=== PATIENT | female | born 1960 | race Caucasian/White ===

== ENCOUNTER → 2019-05-06 10:56 | Outpatient (CLI) | payer OTHER, SELFPAY ==
--- NOTE | 2019-05-06 11:10 | DI.CT.S_ITS ---
PROCEDURE: CT ABDOMEN PELVIS WO/W CON INDICATIONS: Painless, gross hematuria TECHNIQUE: Optional 5 mm thick noncontrast images acquired from the diaphragm to the symphysis pubis. After the administration of intravenous contrast, 5 mm thick images acquired from the diaphragm to the symphysis pubis after a 10-minute delay. 2 mm thick coronal and sagittal reformats were then performed of the kidneys and ureters. For radiation dose reduction, the following was used: automated exposure control, adjustment of mA and/or kV according to patient size. COMPARISON: [facility], MR, MR ABD PELVIS W&WO CON, 06/03/2016, 9:51. FINDINGS: Image quality: Excellent. Lung bases: Lung bases are clear. Heart size is normal. Urinary system: Both kidneys are normal in size, without hydronephrosis or nephrolithiasis on pre-contrast images. No perinephric fat stranding. There is normal bilateral renal enhancement. Renal calyces appear normal in morphology when filled with contrast. Opacified portions of both ureters demonstrate normal caliber. Bladder wall thickness is mildly thickened. No calcified bladder stones. Subcentimeter left renal cyst. Other solid organs: Liver is normal in size and enhancement. Gallbladder surgically absent. Biliary system is non dilated. Ill-defined low attenuation seen in the region of the head of pancreas, which is technically indeterminate however raises the possibility of ill-defined mass. Exact measurements are technically difficult however this measures proximal 4.6 x 2.9 cm on an axial image 62 series 3. Spleen is normal in size and enhancement. No adrenal nodules. Peritoneum and bowel: Bowel loops demonstrate normal wall thickness and caliber. No free fluid or air. Nodes and vessels: No retroperitoneal or mesenteric adenopathy by size criteria. Aorta and inferior vena cava are normal in size. Abdominal wall: No ventral hernias. Pelvis: No pathologic free pelvic fluid. No inguinal hernias or adenopathy. Enlarged heterogeneous uterus suggestive of fibroids. Bones: No suspicious bony lesions. No vertebral body compression fractures. IMPRESSION: No urolithiasis or evidence of urinary obstruction. Ill-defined soft tissue attenuation the region of the pancreas raising possibility of pancreatic neoplasm. However, the findings are technically nonspecific. Please correct clinically and with pancreatic enzymes to exclude acute inflammatory process. Recommend further evaluation with pancreatic protocol MRI with and without contrast. Or if sufficient clinical suspicion, endoscopic ultrasound could be considered Fibroid uterus. Dictated by: Chris Jean M.D. on 05/06/2019 at 13:26 Approved by: Chris Jean M.D. on 05/06/2019 at 16:36
== END ==
PROVIDERS: Visit Provider Physician Assistant
DX: R31.0 Gross hematuria (principal); D25.9 Leiomyoma of uterus, unspecified; Z90.49 Acquired absence of other specified parts of digestive tract
CPT/HCPCS: 74178

== ENCOUNTER → 2020-12-13 11:08 | Outpatient (CLI) | payer MEDICARE, SELFPAY ==
--- NOTE | 2020-12-13 11:12 | DI.US.S_ITS ---
PROCEDURE: US PELVIC COMPLETE INDICATIONS: POST MENOPAUSAL BLEEDING TECHNIQUE: Real-time scanning was performed of the pelvic organs, with image documentation. Additional endovaginal scanning was necessary due to incomplete visualization of the adnexal and endometrial structures by transabdominal scanning. COMPARISON: [facility], CT, CT ABDOMEN PELVIS WO/W CON, 05/06/2019, 11:27. [facility], US, US PELVIC COMPLETE, 12/06/2019, 11:22. FINDINGS: Uterus: Uterus is enlarged measuring at 10.2 x 7.5 x 6.7 cm. Large fibroid distorts the endometrium. Mid intramural fibroid measuring approximately 7.6 x 6.4 x 4.7 cm. Endometrial thickness is difficult to measure. Nabothian cysts. Ovaries: Not well seen. Other: No pathologic free abdominal or pelvic fluid. IMPRESSION: 1. Enlarged fibroid uterus. Large fibroid measures approximately 7.6 cm. 2. Endometrial cavity is not well seen. Endometrial thickness cannot be measured. -Recommended endometrial biopsy. -Consider MRI pelvis with IV contrast to further evaluate the uterus and endometrium in this postmenopausal patient with bleeding. 3. Ovaries are not well seen. Dictated by: Reji Rios M.D. on 12/13/2020 at 13:59 Approved by: Reji Rios M.D. on 12/13/2020 at 14:04
== END ==
PROVIDERS: Referring Provider Obstetrics & Gynecology; Visit Provider Obstetrics & Gynecology
DX: N95.0 Postmenopausal bleeding (principal); D25.1 Intramural leiomyoma of uterus
CPT/HCPCS: 76830; 76856

== ENCOUNTER → 2021-07-15 11:33 | Outpatient (CLI) | payer MEDICARE, SELFPAY ==
[2021-07-15 12:44] LABS: COVID19 -Nasal RAPID Negative (Negative)
== END ==
PROVIDERS: Referring Provider Nurse Practitioner Family; Visit Provider Nurse Practitioner Family
DX: Z20.822 Contact with and (suspected) exposure to COVID-19 (principal)
CPT/HCPCS: 87635

== ENCOUNTER → 2021-07-30 12:08 | Outpatient (CLI) | payer MEDICARE, SELFPAY ==
[2021-07-30 13:31] LABS: COVID19 -Nasal RAPID Negative (Negative)
== END ==
PROVIDERS: Visit Provider Student in an Organized Health Care Education/Training Program
DX: Z20.822 Contact with and (suspected) exposure to COVID-19 (principal)
CPT/HCPCS: 87635

== ENCOUNTER → 2021-09-18 14:27 | Outpatient (CLI) | payer MEDICARE, SELFPAY ==
[2021-09-18 15:38] LABS: Add Manual Diff / Slide Review NO; Basophils Absolute Auto 0 /uL (0-100); Basophils Percent Auto 0.4 % (0-2); Eosinophils Absolute Auto 200 /uL (0-450); Hemoglobin 13.7 g/dL (12.0-16.0); Lymphocytes Absolute Auto 2200 /uL (1100-4500); Lymphocytes Percent Auto 29.1 % (25-40); Mean Corpuscular HGB Conc 33.3 % (30-36); Mean Corpuscular Hemoglobin 28.9 PG (26-34); Mean Corpuscular Volume 86.8 fL (80-100); Monocytes Absolute Auto 500 /uL (0-900); Monocytes Percent Auto 6.8 % (3-14); Neutrophils Absolute Auto 4700 /uL (1500-7000); Neutrophils Percent Auto 61.7 % (50-75); Platelet Count 137 X10^3/uL (150-400); Red Blood Cell Count 4.73 X10^6/uL (4.0-5.2); Red Cell Distribution Width 14.3 % (11.6-14.8); White Blood Cell Count 7.7 X10^3/uL (4.5-11.0)
[2021-09-18 16:55] LABS: TSH w/ Reflex to FT4 0.17 uIU/mL (0.47-4.68)
[2021-09-18 17:23] LABS: Free T4, Direct Thyroxine 1.12 ng/dL (0.78-2.19)
[2021-09-19 11:09] LABS: Free T3, Triiodothyronine Free 3.92 pg/mL (2.77-5.27)
== END ==
PROVIDERS: Referring Provider Obstetrics & Gynecology; Visit Provider Obstetrics & Gynecology
DX: R53.83 Other fatigue (principal); R53.82 Chronic fatigue, unspecified
CPT/HCPCS: 36415; 84439; 84443; 84481; 85025

== ENCOUNTER → 2022-01-24 07:54 | Outpatient (CLI) | payer MEDICARE, SELFPAY ==
[2022-01-24 09:14] LABS: COVID19 -Nasal RAPID Negative (Negative)
== END ==
PROVIDERS: PCP Nurse Practitioner Gerontology; Visit Provider Obstetrics & Gynecology
DX: Z01.812 Encounter for preprocedural laboratory examination (principal); Z20.822 Contact with and (suspected) exposure to COVID-19
CPT/HCPCS: 87635

== ENCOUNTER 2022-01-24 08:12 | Day surgery (SDC) | payer OTHER, SELFPAY ==
[2022-01-22 08:30] VITALS: BMI 52.9
[2022-01-24] VITALS (7 sets, daily range): BP systolic 114–167; BP diastolic 62–87; PULSE 79–87; RESP 12–16; TEMP 36.4–36.7; O2SAT 96–996; BMI 52.9
--- NOTE | 2022-01-24 | PATH_ITS ---
[facility] Accession Number: [id number] . 01 Material submitted: . PART A: endocervix - ENDOCERVICAL POLYPS PART B: endometrium - ENDOMETRIAL POLYP PART C: endocervix - ENDOCERVICAL CURETTINGS PART D: endometrium - ENDOMETRIAL CURETTINGS . 01 Diagnosis: A. Endocervical Polyps: Portions of endocervical tissue; negative for glandular dysplasia or malignancy. Some endocervical tissue fragments demonstrate prominent vessels, suggestive of polyp, if clinical and imaging studies are concordant. . B. Endometrial Polyp: Interval phase endometrium; negative for glandular hyperplasia, cytologic atypia, or malignancy. Some endometrial fragments demonstrate prominent vessels, suggestive of polyp, if clinical and imaging studies are concordant. Portions of attached myometrium; negative for atypia or malignancy. . C. Endocervical Curetting: Small fragments of endocervical tissue and strips of endocervical glandular epithelium; negative for glandular dysplasia or malignancy. Avulsed portions of squamous mucosa with focal cytologic atypia suggestive of, but not diagnostic of, low-grade squamous intraepithelial lesion / WILMA-1. . D. Endometrial Curettings: Portions of inactive endometrium with focal cystic change; negative for glandular hyperplasia, cytologic atypia, or malignancy. [facility] 01/27/2022 1528 Local . 01 Electronically signed: . Kari Bonilla MD, Pathologist NPI- [id number] . 01 Gross description: . Part A: ENDOCERVICAL POLYPS: Received in formalin are multiple fragment(s) of polk, soft tissue measuring 2.5 x 2.2 x 0.7 cm in aggregate submitted entirely in 1 cassette(s) Part B: ENDOMETRIAL POLYP: Received in formalin is 1 fragment(s) of polk, soft tissue measuring 0.4 x 0.3 x 0.9 cm which is inked, bisected and submitted entirely in 1 cassette(s) Part C: ENDOCERVICAL CURETTINGS: Received in formalin are minute fragments of mucoid and hemorrhagic material measuring 1.3 x 0.8 x 0.1 cm in aggregate. Submitted in toto in 1 cassette. Part D: ENDOMETRIAL CURETTINGS: Received in formalin are minute fragments of mucoid and hemorrhagic material measuring 1.4 x 1.4 x 0.3 cm in aggregate. Submitted in toto in 1 cassette. /[facility] 01/25/2022 0728 Local . 01 Pathologist provided ICD-10: D25.9, N95.0 . 01 CPT . 745365, 106970, 659293, 070451 Specimen Comment: A courtesy copy of this report has been sent to [phone] Performed at: 01 [facility] [address] [place] [address] [address] [facility], [place], [place] [id number] MD Cristian Hammer MD Phone: [phone]
[2022-01-24] MEDS: LACTATED RINGERS 1,000 ML 42 ML IV ×2 (09:30→10:42)
--- NOTE | 2022-01-24 09:45 | PM.PREOP ---
Pre-operative Note COVID-19 COVID-19 status: Negative Result date/Date tested (Pos, Neg/Pending): 01/24/22 Criteria for continued procedure: Non-surgical alternatives not available or appropriate per current SOC Interval Note History & Physical reviewed/Exam performed by Physician: Yes Changes to H&P: No
--- NOTE | 2022-01-24 10:25 | SUR.OPER ---
Lithotomy on padded OR bed, head on pillow, arms secured on padded arm boards at <90 degrees abduction. Legs secured in padded yellow fins stirrups.
--- NOTE | 2022-01-24 11:13 | P.OP_ITS ---
Operative Date/Time/Diagnoses Date of procedure: 01/24/22 Time of procedure: 10:45 Pre-op diagnosis: Post-menopausal bleeding Post-op diagnosis: other (PEARL, Endocervical polyp, endometrial polyp) Procedure & Clinicians Procedure: Procedures Operation Date: 01/24/22 09:45 Actual Procedure Side Surgeon p Hysteroscopy w/ BX's. (Hysteroscopic resection of endometrial and endocervical polyps, D&C Not Applicable Marcos Cervantes MD Indications: Jeanne Rogers is a 61-year-old female with persistent postmenopausal b leeding presenting today for preop evaluation prior to hysteroscopy with D&C, possible hysteroscopic resection of uterine fibroid, and possible NovaSure endometrial ablation.? Patient has had several endometrial biopsies over the last few years with most recent in 2020, all of which have shown benign endometrial tissues.? Patient is known also to have a large (7 cm) intramural fibroid which distorts the endometrial stripe or which measures 8 mm in combined thickness.? After extensive counseling regarding options we are proceeding with hysteroscopy to visually evaluate the endometrial cavity to rule out any occult malignancy or other abnormality which would be causing the patient's recurring episodes of postmenopausal bleeding. She presents today for her scheduled surgery. Surgeon: Marcos Cervantes Anesthesia Type: General Operative Notes Findings: The uterus is 10 weeks in size with a posterior intramural myoma palpable posteriorly. Adnexae are not palpable. The tip of an endocervical polyp arising high in the endocervical canal is seen protruding through the cervical os which bleeds easily. The endometrial cavity is visualized in it's entirety and a single polypoid mass is seen to arise in the area of the right cornua. Both the endometrial and endocervical polyps were removed in their entirety and submitted as seeparate pathologic specimens along with EMC and ECC specimens. Closure Type: not applicable Specimen(s): endometrial curettings, endometrial polyp and other (Endocervical polyp, endocervical curettage) Estimated blood loss (mL): 15 Blood products transfused: none Procedure in detail: With the patient under satisfactory general anesthesia in the modified dorsal lithotomy position, the perineum, vagina, and lower abdomen were prepped and draped for vaginal surgery. A weighted speculum was placed in vagina and the cervix visualized. Anterior lip of the cervix was grasped with a single-tooth tenaculum the endocervical canal sequentially dilated with Hegar dilators. Using saline as a distention medium hysteroscopic examination of the endocervical canal endometrial cavity were attempted due to equipment malfunction, adequate visualization of either the endocervical canal or the endometrial cavity was unsuccessful. The larger resectoscope was obtained and distention medium switch to sorbitol. The endocervical canal was further dilated to 9 mm and the resectoscope introduced into endocervical canal where the end of cervical polyp base was visualized and base resected hysterosco pically with a loop electrode. Inspection of the endometrial cavity was then performed with excellent visualization of the entire cavity. Endometrial surface was largely atrophic with a single polypoid mass arising in the area of the right cornua and the mass itself was also resected hysteroscopically using the loop electrode. The endocervical polyp and endometrial polyp were each submitted as separate pathologic specimens. The resectoscope was then removed from the endometrial cavity and fractional curettage was performed with an ECC and EMC specimen obtained and submitted separately. At the completion of the D&C, the tenaculum was removed from the cervix and no significant bleeding was noted from the tenaculum sites. The speculum was removed from the vagina, the patient awakened, and transferred to PACU for a period of observation and recovery having tolerated the procedure well. Complications: none Post-operative Condition: stable Disposition: PACU Plan for aftercare: Routine postoperative care with follow-up visit scheduled for 2 weeks postop.
[2022-01-24] MEDS: ACETAMINOPHEN 325 MG TABLET 975 MG PO (11:46)
[2022-01-24] MEDS: ONDANSETRON 4 MG/2 ML INJ IV (11:58)
== END 2022-01-24 12:16 | disposition home or self-care (01) ==
PROVIDERS: PCP Nurse Practitioner Gerontology; Referring Provider Obstetrics & Gynecology; Visit Provider Obstetrics & Gynecology
PROC: 0U5B8ZZ Destruction of Endometrium, Via Natural or Artificial Opening Endoscopic (ICD-10-PCS; CPT 58563; principal; 2022-01-24 09:45)
DX: N95.0 Postmenopausal bleeding (principal); E66.01 Morbid (severe) obesity due to excess calories; K21.9 Gastro-esophageal reflux disease without esophagitis; D25.2 Subserosal leiomyoma of uterus
CPT/HCPCS: 58558; J2405; J3010

== ENCOUNTER → 2025-05-02 14:00 | Outpatient (CLI) | payer MEDICARE, MEDICAID, SELFPAY ==
--- NOTE | 2025-05-02 14:03 | DI.US.S_ITS ---
PROCEDURE: US THYROID INDICATIONS: hx of thyroid nodule TECHNIQUE: Real-time scanning was performed of the thyroid gland, with image documentation. COMPARISON: None. FINDINGS: Thyroid: Right lobe measures 4.7 x 2.6 x 2.6 cm. Left lobe measures 2.5 x 0.9 x 1.1 cm. Isthmus is 0.1 cm thick. Echotexture is homogeneous. Nodule number: 1 Location: Right mid/inferior Size: 3.6 x 2.9 x 2.6 cm. Composition: Predominantly solid Echogenicity: Hypoechoic Shape: wider than tall. Margins: Ill-defined Echogenic foci: Macrocalcification Total points: 5 ACR TI-RADS category: Category 4 IMPRESSION: Solitary TIRADS 4 right thyroid nodule measuring up to 3.6 cm in size. This has undergone previous FNA with benign results. Prior imaging not available for review. Consider follow-up thyroid ultrasound in 1 year to document continued stability. ACR TI-RADS definitions and recommendations: TI-RADS 1 (benign): 0 points. FNA not needed. TI-RADS 2 (not suspicious): 2 points. FNA not needed. TI-RADS 3: 3 points. * FNA if 2.5 cm or larger, follow up if 1.5 cm or larger (at 1, 3, and 5 years). TI-RADS 4: 4-6 points. * FNA if 1.5 cm or larger, follow up if 1 cm or larger (at 1, 2, 3, and 5 years). TI-RADS 5: 7 points or more. * FNA if 1 cm or larger, follow up if 0.5 cm or larger (every year for 5 years). Dictated by: Salvatore Salter M.D. on 05/03/2025 at 18:24 Approved by: Salvatore Salter M.D. on 05/03/2025 at 18:31
== END ==
PROVIDERS: PCP Nurse Practitioner Gerontology
DX: E05.90 Thyrotoxicosis, unspecified without thyrotoxic crisis or storm (principal); E04.1 Nontoxic single thyroid nodule; Z86.39 Personal history of other endocrine, nutritional and metabolic disease
CPT/HCPCS: 76536